=== PATIENT | male | born 1950 | race Hispanic/Latino ===

== ENCOUNTER 2017-11-13 15:29 | Emergency (ER) | payer BC ==
[2017-11-13 15:55] VITALS: RESP 18
[2017-11-13 16:09] VITALS: BMI 24.2
[2017-11-13] MEDS ORDERED: Albuterol-Ipratrop 3 mg / 0.5 (3 ml) UD IH STA (16:36)
[2017-11-13 17:04] VITALS: O2SAT 98
--- NOTE | 2017-11-13 17:24 | RAD ---
HISTORY: Shortness of breath COMPARISON: 03/18/2013. FINDINGS: LUNGS: The lungs are well inflated and clear. PLEURA: No significant pleural effusion identified, no pneumothorax apparent. CARDIOVASCULAR: The heart is normal in size. There is unfolding of the aorta. OSSEOUS STRUCTURES: No significant abnormalities. VISUALIZED UPPER ABDOMEN: Normal. OTHER FINDINGS: None. IMPRESSION: No active pulmonary disease.
[2017-11-13 17:29] LABS: BASO # 0.08 K/mm3 (0.0-2.0); EOS # 0.5 (0.0-0.7); GRAN # 5.68 (1.4-6.5); GRAN % 67.7 % (50.0-68.0); LYMPH # 1.5 (1.2-3.4); MEAN CELL VOLUME 89.8 fl (80.0-105.0); MEAN CORPUSCULAR HEMOGLOBIN 32.1 pg (25.0-35.0); MEAN CORPUSCULAR HGB CONC 35.7 g/dl (31.0-37.0); MEAN PLATELET VOLUME 9.3 fl (7.0-11.0); MONO # 0.6 (0.1-0.6); MONO % 7.3 % (1.0-6.0); RBC 4.99 10^6/uL (3.5-6.1); RED CELL DISTRIBUTION WIDTH 12.8 % (11.5-14.5); WHITE BLOOD COUNT 8.4 10^3/ul (4.5-11.0)
[2017-11-13 17:37] LABS: ALB/GLOB RATIO 1.5 (1.1-1.8); ALBUMIN 4.6 g/dL (3.0-4.8); ALT/SGPT 51 U/L (7-56); AST/SGOT 42 U/L (17-59); BLOOD UREA NITROGEN 18 mg/dL (7-21); CALCIUM 9.6 mg/dL (8.4-10.5); GFR AFRICAN-AMERICAN > 60; GFR NON-AFRICAN AMERICAN > 60
[2017-11-13 17:45] LABS: INR 1.02 (0.93-1.08); PARTIAL THROMBOPLASTIN TIME 29.6 Seconds (25.1-36.5); PROTHROMBIN TIME 11.6 SECONDS (9.4-12.5)
[2017-11-13 17:50] LABS: B-TYPE NATRIURETIC PEPTIDE 48.3 pg/mL (0-450); TROPONIN I < 0.01 ng/mL
[2017-11-13 17:53] LABS: CK MB% 3.1 % (2.5-3.0); CK-MB 7.8 ng/mL (0.0-3.6)
--- NOTE | 2017-11-13 18:16 | CT ---
PROCEDURE: CT NECK WITHOUT CONTRAST HISTORY: intermittent throat tightness COMPARISON: None. TECHNIQUE: CT of the neck without intravenous contrast. Coronal and sagittal reformats generated. Radiation dose: DLP 513.81 mGy-cm This CT exam was performed using one or more of the following dose reduction techniques: Automated exposure control, adjustment of the mA and/or kV according to patient size, and/or use of iterative reconstruction technique. FINDINGS: NASOPHARYNX: Unremarkable. SUPRAHYOID NECK: Unremarkable oropharynx, oral cavity, parapharyngeal space and retropharyngeal space. INFRAHYOID NECK: Unremarkable larynx, hypopharynx, and supraglottic space. Vocal cords intact. MASS: No definitive the lesion identified however the study is compromised by lack of intravenous contrast. GLANDS: Parotid and submandibular glands unremarkable. Normal size thyroid gland, without nodule. LYMPH NODES: Normal. No lymphadenopathy. CERVICAL SPINE: Advanced multilevel cervical spondylosis with moderate reversal of the cervical curvature. No fracture or spondylolisthesis appreciated. OTHER FINDINGS: None. IMPRESSION: Unremarkable unenhanced neck CT without contrast. No airway compromise appreciated or gross mass evident. No retained radiodense foreign body appreciated in the upper aerodigestive tract.
[2017-11-13 18:53] LABS: URINE APPEARANCE CLEAR (CLEAR); URINE BILIRUBIN NEGATIVE (NEGATIVE); URINE BLOOD NEGATIVE (NEGATIVE); URINE COLOR YELLOW (YELLOW); URINE GLUCOSE (UA) NEGATIVE (NEGATIVE); URINE LEUKOCYTE ESTERASE NEGATIVE Leu/uL (NEGATIVE); URINE PROTEIN NEGATIVE mg/dL (<30 mg/dL); URINE UROBILINOGEN 0.2 E.U./dL (<1 E.U./dL)
--- NOTE | 2017-11-13 19:10 | ED PDOC ---
Arrival/HPI - General Chief Complaint: Cough, Cold, Congestion Time Seen by Provider: 11/13/17 16:13 Historian: Patient - History of Present Illness Narrative History of Present Illness (Text): Patient is a 67 yo male presents to the Emergency Department complaining of intermittent episodes of shortness of breath over the past three to four days. Patient states that four weeks ago he had a dental procedure, and at that time afterwards had episodes of shortness of breath. At that time, he denies lip or tongue swelling, denied rash. He states that he went to a medical clinic who prescribed him antibiotics and steroids and an inhaler. He states that symptoms resolved in 1-2 days at that time. Similar symptoms of shortness of breath returned over the past 3-4 days. He states he will feel "as if my throat is closing up" and episodes occur at times at rest, at times with exertion, than resolve after a few minutes. Denies any associated chest pain or pleuritic discomfort. States he feels some discomfort to the left side of his throat over the past several days, but denies any difficulty swallowing liquids or solids. Denies any neck swelling. Denies any hempotysis or hematemesis. States he feels fatigued. Denies leg pain or swelling. Denies fevers or chills. Past Medical History - Cardiac Hx Cardiac Disorders: No Hx Pacemaker: No - Pulmonary Hx Respiratory Disorders: No - Neurological Hx Neurological Disorder: No Hx Paralysis: No - HEENT Hx HEENT Disorder: No - Renal Hx Renal Disorder: No - Endocrine/Metabolic Hx Endocrine Disorders: No - Hematological/Oncological Hx Blood Disorders: No Hx Blood Transfusions: No Hx Blood Transfusion Reaction: No - Integumentary Hx Dermatological Disorder: No - Musculoskeletal/Rheumatological Hx Musculoskeletal Disorders: Yes - Gastrointestinal Hx Gastrointestinal Disorders: Yes Hx Gastroesophageal Reflux: Yes - Genitourinary/Gynecological Hx Genitourinary Disorders: No - Psychiatric Hx Psychophysiologic Disorder: No Hx Emotional Abuse: No Hx Physical Abuse: No Hx Substance Use: No - Anesthesia Hx Anesthesia Reactions: No - Suicidal Assessment Feels Threatened In Home Enviroment: No Family/Social History Family/Social History: Unknown Family HX Smoking Status: Never Smoked Hx Alcohol Use: Yes (SOCIALLY) Hx Substance Use: No Allergies/Home Meds Allergies/Adverse Reactions: Allergies Penicillins Allergy (Verified 04/13/16 08:42) ANAPHYLAXIS Home Medications: Home Meds Medication Instructions Recorded Confirmed Ginseng 100 mg PO DAILY 04/13/16 04/14/16 Glucosamine Sulfate Dipot Chlr 1 tab PO DAILY 04/13/16 04/14/16 [Glucosamine] Multivitamin [One Daily] 1 tab PO DAILY 04/13/16 04/14/16 Omeprazole 40 mg PO DAILY 04/13/16 04/14/16 Vit B Cplx C No.13/Folic AC/D3 1 tab PO DAILY 04/13/16 04/14/16 [Nephrocaps Qt Tablet] Review of Systems - Review of Systems Constitutional: Fatigue. absent: Fevers Eyes: absent: Vision Changes ENT: Sore Throat, Sinus Congestion. absent: Hearing Changes, Voice Changes, Rhinorrhea, Epistaxis Respiratory: SOB, Cough, Sputum, Wheezing Cardiovascular: absent: Chest Pain, Palpitations, Edema, Calf Pain, RAMOS, Orthopnea Gastrointestinal: absent: Abdominal Pain, Nausea, Vomiting Genitourinary Male: absent: Dysuria, Frequency Musculoskeletal: absent: Back Pain Skin: absent: Rash Neurological: absent: Headache, Dizziness Endocrine: absent: Polyuria Hemo/Lymphatic: absent: Easy Bleeding Psychiatric: absent: Anxiety, Depression Physical Exam Vital Signs Reviewed: Yes Vital Signs Temp Pulse Resp BP Pulse Ox 11/13/17 19:15 98.3 F 72 18 142/72 98 11/13/17 17:03 77 18 162/97 H 98 11/13/17 15:53 98.2 F 70 18 132/71 95 Temperature: Afebrile Appearance: Positive for: Non-Toxic Pain Distress: Mild Mental Status: Positive for: Alert and Oriented X 3 Finger Stick Blood Glucose: 69 - Systems Exam Head: Present: Atraumatic Pupils: Present: PERRL Mouth: Present: Moist Mucous Membranes, Normal Lips, Normal Tounge. No: Drooling, Trismus Pharnyx: No: ERYTHEMA, EXUDATE, TONSILS ENLARGED, Peritonsilar Swelling, Muffled /Hoarse Voice, Strider, Soft Palate/Uvular Edema Neck: Present: Normal Range of Motion. No: Meningeal Signs, MIDLINE TENDERNESS Respiratory/Chest: Present: Wheezes. No: Respiratory Distress, Rhonchi, Tachypneic Cardiovascular: Present: Regular Rate and Rhythm, Murmurs Abdomen: No: Tenderness, Distention Back: No: CVA Tenderness, Midline Tenderness Upper Extremity: No: Cyanosis, Edema Lower Extremity: Present: Neurovascularly Intact. No: Edema, CALF TENDERNESS Neurological: Present: Motor Func Grossly Intact, Normal Sensory Function Skin: Present: Warm, Dry Psychiatric: Present: Alert, Normal Insight, Normal Concentration Medical Decision Making ED Course and Treatment: 11/13/17 19:07 Patient on initial exam with mild wheezing. He states that steroids give him adverse reaction. No respiratory distress noted, but patient appears as if he has to catch his breath when speaking despite no hypoxia, no accessory muscle usage. Labs and xrays ordered. No drooling or pooling of secretions. NO lip or tongue swelling. No stridor. No rash. No pharyngeal erythema or abscess noted. Denies chest pain or pleuritic discomfort. Reports throat "tightness" but ct neck unremarkable for obstructing mass. Neb given with improvement in wheezing, although recommended admission to hospital for respiratory and cardiac monitoring, evaluate for underlying infectious, allergic, or pulmonary disease, but not limited to this. Cannot exclude allergic component, cardiac component, pulmonary disease, ENT or laryngeal disease. Patient feels better, not in respiratory distress, states he does not wish to stay. Is able to verbalize understanding of recommended treatment plan, risks of signing out against medical advice. Patient alert and oriented, not hypoxic, will sign out against medical advice. 11/14/17 08:23 - Lab Interpretations Lab Results: 11/13/17 17:10 11/13/17 17:10 Lab Results 11/13/17 18:36: Urine Color Yellow, Urine Appearance Clear, Urine pH 6.0, Ur Specific [place] 1.025, Urine Protein Negative, Urine Glucose (UA) Negative, Urine Ketones 15 H, Urine Blood Negative, Urine Nitrate Negative, Urine Bilirubin Negative, Urine Urobilinogen 0.2, Ur Leukocyte Esterase Negative 11/13/17 17:12: POC Glucose (mg/dL) 69 11/13/17 17:10: Influenza Typ A,B (EIA) Negative for flu a/b 11/13/17 17:10: Sodium 144, Potassium 4.8, Chloride 101, Carbon Dioxide 30, Anion Gap 17, BUN 18, Creatinine 0.9, Est GFR ( Amer) > 60, Est GFR (Non- Af Amer) > 60, Random Glucose 92, Calcium 9.6, Total Bilirubin 0.7, AST 42, ALT 51, Alkaline Phosphatase 63, Lactate Dehydrogenase 543, Total Creatine Kinase 255 H, CK-MB (CK-2) 7.8 H, CK-MB (CK-2) % 3.1 H, Troponin I < 0.01, NT-Pro-B Natriuret Pep 48.3, Total Protein 7.6, Albumin 4.6, Globulin 3.0, Albumin/ Globulin Ratio 1.5 11/13/17 17:10: PT 11.6, INR 1.02, APTT 29.6 11/13/17 17:10: WBC 8.4 D, RBC 4.99, Hgb 16.0, Hct 44.8, MCV 89.8, MCH 32.1, MCHC 35.7, RDW 12.8, Plt Count 267, MPV 9.3, Gran % 67.7, Lymph % (Auto) 18.0 L , Riley % (Auto) 7.3 H, Eos % (Auto) 6.0 H, Baso % (Auto) 1.0, Gran # 5.68, Lymph # (Auto) 1.5, Riley # (Auto) 0.6, Eos # (Auto) 0.5, Baso # (Auto) 0.08 - RAD Interpretation Radiology Orders: 11/13/17 16:35 CHEST PORTABLE [RAD] Stat 11/13/17 16:46 NECK SOFT TISSUE W/O CONTRAST [CT] Stat - Medication Orders Current Medication Orders: Discontinued Medications Albuterol/Ipratropium (Duoneb 3 Mg/0.5 Mg (3 Ml) Ud) 3 ml IH STAT STA Stop: 11/13/17 16:37 Last Admin: 11/13/17 17:11 Dose: 3 ml Disposition/Present on Arrival - Present on Arrival Any Indicators Present on Arrival: No History of DVT/PE: No History of Uncontrolled Diabetes: No Urinary Catheter: No History of Decub. Ulcer: No History Surgical Site Infection Following: None - Disposition Have Diagnosis and Disposition been Completed?: Yes Diagnosis: Wheezing Disposition: AGAINST MEDICAL ADVICE Disposition Time: 19:07 Patient Plan: Discharge Condition: GOOD Referrals: Paola Enriquez MD [Primary Care Provider] - Follow up with primary Forms: [employer] (Swazi)
[2017-11-13 20:08] VITALS: BP 142/72; PULSE 72; TEMP 98.3
--- NOTE | 2017-11-13 20:31 | CARD ---
APPROVED REPORT EKG Measurement Heart [id number] <Conclusion> Sinus rhythm with marked sinus arrhythmia Left axis deviation Abnormal ECG
== END 2017-11-13 19:15 | disposition left against medical advice (07) ==
LOC: ED 15:29
DX: R06.2 Wheezing (principal)

== ENCOUNTER 2018-06-22 08:12 | Outpatient (CLI) | payer BC | END 2018-06-22 08:13 | disposition home or self-care (01) | LOC: LAB 08:12 ==

== ENCOUNTER 2018-08-05 07:40 | Day surgery (SDC) | payer BC ==
[2018-08-05 08:22] LABS: BASO # 0.03 {null, K/mm3} (0.0-2.0); BASO % 0.6 % (0.0-3.0); EOS # 0.3 (0.0-0.7); EOS % 6.8 % (1.5-5.0); HEMOGLOBIN 14.9 g/dL (14.0-18.0); LYMPH # 0.8 (1.2-3.4); LYMPH % 17.6 % (22.0-35.0); MEAN CELL VOLUME 89.9 fl (80.0-105.0); MEAN CORPUSCULAR HEMOGLOBIN 30.7 pg (25.0-35.0); MEAN CORPUSCULAR HGB CONC 34.1 g/dl (31.0-37.0); MEAN PLATELET VOLUME 9.2 fl (7.0-11.0); MONO # 0.5 (0.1-0.6); MONO % 11.3 % (1.0-6.0); RBC 4.86 {null, 10^6/uL} (3.5-6.1); RED CELL DISTRIBUTION WIDTH 13.4 % (11.5-14.5); WHITE BLOOD COUNT 4.7 {null, 10^3/uL} (4.5-11.0)
[2018-08-05 08:30] LABS: INR 1.04; PARTIAL THROMBOPLASTIN TIME 31.3 Seconds (26.9-38.3); PROTHROMBIN TIME 11.8 SECONDS (9.4-12.5)
[2018-08-05] MEDS ORDERED: Propofol 10 mg/ml Inj (20 ML) ONE ×3 (08:34→09:58)
[2018-08-05 08:35] LABS: ALB/GLOB RATIO 1.4 (1.1-1.8); ALBUMIN 4.3 g/dL (3.0-4.8); ALT/SGPT 31 U/L (7-56); AMYLASE 74 U/L (35-125); AST/SGOT 31 U/L (17-59); BLOOD UREA NITROGEN 21 mg/dL (7-21); CALCIUM 9.4 mg/dL (8.4-10.5); GAMMA GLUTAMYL TRANSPEPTIDASE 19 U/L (8-78); GFR NON-AFRICAN AMERICAN > 60; LIPASE 105 U/L (23-300)
[2018-08-05] MEDS ORDERED: Sodium Chloride 0.9% 1,000 ML IV SCH (09:00)
[2018-08-05 10:33] VITALS: RESP 16
[2018-08-05 10:46] VITALS: PULSE 66
[2018-08-05 13:07] VITALS: BP 127/77; TEMP 98.1; O2SAT 98
== END 2018-08-05 11:53 | disposition home or self-care (01) ==
LOC: ENDO 07:40
PROVIDERS: ATTEND Internal Medicine Gastroenterology
DX: K29.30 Chronic superficial gastritis without bleeding (principal); B37.81 Candidal esophagitis; K21.0 Gastro-esophageal reflux disease with esophagitis; K86.89 Other specified diseases of pancreas
CPT/HCPCS: 36415; 43237; 43239; 80053; 82150; 82977; 83690; 85025; 85610; 85730; 88305; 88342; J2001; J2704; J7030